=== PATIENT | male | born 1945 | race Caucasian/White ===

== ENCOUNTER 2016-12-08 23:14 | Observation (INO) | payer MEDICARE, OTHER ==
[2016-12-08] MEDS ORDERED: IPRATROPIUM/ALBUTEROL 0.5/3 MG 3 ML AMPUL.NEB INHALATION ONE (23:43)
[2016-12-08 23:49] LABS: BASOPHIL# 0.2 X 10^3uL (0.0-0.1); BASOPHILS 2.6 % (0.0-2.0); EOSINOPHILS 2.6 % (0.0-6.0); EOSINOPHILS# 0.2 X 10^3uL (0.0-0.4); HEMATOCRIT 44.2 % (42.0-54.0); HEMOGLOBIN 15.1 g/dL (14.0-18.0); LYMPHOCYTES 22.6 % (20.0-40.0); LYMPHOCYTES# 2.1 X 10^3uL (0.8-3.8); MEAN CELL VOLUME 101.2 fL (80.0-100.0); MEAN CORPUS. HGB CONCENTRATION 34.1 g/dL (32.0-36.0); MEAN CORPUSCULAR HEMOGLOBIN 34.6 pg (29.0-35.0); MONOCYTES 8.6 % (2.0-10.0); MONOCYTES# 0.8 X 10^3uL (0.2-1.0); NEUTROPHILS 63.6 % (54.0-75.0); PLATELET COUNT 294 X 10^3uL (130-440); RED BLOOD COUNT 4.36 X 10^6uL (4.20-6.10); WHITE BLOOD COUNT 9.3 X 10^3uL (3.9-10.7)
[2016-12-09 00:01] LABS: ALKALINE PHOSPHATASE 90 U/L (38-126); AST 22 U/L (17-59); BILIRUBIN, TOTAL 0.8 mg/dL (0.2-1.3); BLOOD UREA NITROGEN 19 mg/dL (9-20); CALCIUM 8.9 mg/dL (8.4-10.2); CHLORIDE 104 mmol/L (98-107); CREATININE 0.9 mg/dL (0.7-1.3); EST GLOMERULAR FILTRATION RATE > 60 mL/min; GLUCOSE 125 mg/dL (70-100); LIPASE 125 U/L (23-300); POTASSIUM 4.1 mmol/L (3.5-5.1); SODIUM 142 mmol/L (137-145)
[2016-12-09 00:03] LABS: INR 3.1
[2016-12-09 00:10] LABS: ETHYL ALCOHOL < 10 mg/dL (<10)
--- NOTE | 2016-12-09 00:21 | RADIOLOGY REPORT ---
HISTORY: Shortness of breath COMPARISON: None. FINDINGS: 2 views of the chest obtained. Cardiac silhouette is mildly enlarged. Mediastinal contours are within normal limits. There is pulmonary vascular congestion. There is no lobar consolidation, pleural effu adilson, or pneumothorax. Osseous structures are unremarkable for age. IMPRESSION: Mildly enlarged cardiac silhouette with pulmonary vascular congestion. Final Electronic Signature: This report was electronically signed by Demetrius Grider MD on 12/09/2016 1 2:18 AM. [email or web address] /
[2016-12-09] MEDS ORDERED: HOME MEDICATION LIST NEEDED 1 EA EACH MISC ONE (00:24)
[2016-12-09] MEDS ORDERED: MAG-AL PLUS XS SUSP 30 ML UDC PO PRN (00:24)
[2016-12-09] MEDS ORDERED: ACETAMINOPHEN 325 MG TABLET PO PRN (00:24)
--- NOTE | 2016-12-09 01:14 | ER NURSING DOCUMENTATION ---
Nurse's Notes [facility] Name:César Sparks Age:71 yrs Sex:Male :1945 Arrival Date:12/08/2016 Time:23:14 Bed4 Private MD: Diagnosis:Hypoxia;COPD Exacerbation Presentation: 12/08 23:23 Notified ED Physician of Dr. Kuhn notified. lb 23:23 Acuity: ERNIE 3 lb 23:44 Presenting complaint: Patient states: fell 2 days ago, c/o ruq/rib pain worse with deep lb breath. alos feels short of breath. hx copd, came up to altitude this am. Transition of care: patient was not received from another setting of care. 23:44 Method Of Arrival: Walk In lb 23:52 Mechanism of Injury: Fall. lb Triage Assessment: 23:49 General: Appears uncomfortable, Behavior is appropriate for age, pleasant. Pain: lb Complains of pain in diaphragm Pain does not radiate. Pain currently is 9 out of 10 on a pain scale. Quality of pain is described as sharp, Pain began 2-3 days ago. Respiratory: Airway is patent Trachea midline Respiratory effort is labored, Respiratory pattern is regular, Breath sounds with wheezes bilaterally. Reports shortness of breath Onset: The symptoms/episode began/occurred this morning, the patient has moderate shortness of breath. Historical: - Allergies: No known drug Allergies; - Home Meds: 1. Coumadin Oral 2. atorvastatin oral 3. gabapentin oral 4. Lisinopril Oral 5. Advair Diskus Inhl 6. carvedilol oral 7. Aspirin Oral 8. Albuterol Inhl 9. Baclofen Oral 10. spiriva - PMHx: CHF; COPD; CVA; Hypertension; ATRIAL FIB; ANEURYSM; ARTHRITIS; - PSHx: Knee surgery; HERNIA REPAIR; splenectomy; - Tetanus: < 10 years. - Ebola Screening: : Patient denies exposure to infectious person. Patient denies travel to an Ebola-affected area in the 21 days before illness onset. . - Immunization history: Pneumococcal vaccine status is unknown, Flu Vaccine < 1 year Flu Vaccine < 1 year. - Social history: Smoking status: Patient states former smoker of tobacco. Patient uses alcohol but reports only rare drinking. Screenin:51 Infectious Disease Risk None. Abuse screen: Denies threats or abuse. Denies injuries lb from another. Nutritional screening: No deficits noted. Assessment: 23:51 See Triage Assessment done by same RN. lb 12/09 00:30 Cardiovascular: Rhythm is atrial fibrillation With PVC's. lb Vital Signs: 12/08 23:51 BP 142 / 93; Pulse 92; Resp 22; Pulse Ox 87% on R/A; Pain 9/10; lb 12/09 00:06 BP 132 / 99; Pulse 101; Resp 20; Pulse Ox 92% on 2 lpm NC; lb Vitals: 12/08 23:53 Peak flow readin liters/min. lb ED Course: 23:16 Patient arrived in ED. ma1 23:23 Sobeida Parks is Primary Nurse. lb 23:26 Triage completed. 23:39 Harsha Kuhn MD is Attending Physician. de 23:51 Valuables Remains with patient Patient has correct armband on for positive lb identification. Placed in gown. Bed in low position. Call light in reach. Side rails up X 1. 23:52 Oxygen Oxygen administration via nasal cannula @ 2L/min. lb 23:57 CXR 2V 53742 In Process Unspecified. EDMS 23:59 Patient moved to radiology. dnn 23:59 Patient moved back from radiology. dnn 23:59 CXR 2V [id number] Sent. dnn 12/09 00:05 CXR 2V [id number] In Process Unspecified. EDMS 00:46 Sunday Baez MD is Admitting Physician. de 00:53 EKG attached lb 01:12 Inserted peripheral IV: 20 gauge in left antecubital area and blood collected. lb Administered Medications: 12/08 23:43 Drug: DuoNeb (Albuterol 2.5 mg, Atrovent 0.5 mg); 3 ml; Route: Nebulizer; lb 12/09 00:01 Follow up: Response: Wheezing unchanged lb Outcome: 00:49 Decision to Admit by Provider. sc 01:12 Admitted to Med/surg accompanied by nurse, via stretcher, with oxygen. lb 01:12 Condition: stable 01:12 Discharge Assessment: Patient awake, alert and oriented x 3. No cognitive and/or functional deficits noted. Patient verbalized understanding of disposition instructions. 01:12 Instructed on need to admit 01:13 Patient left the ED. lb Signatures: Dispatcher [employer] EDDC ChewHarsha MD MD sc Norman, David dnn Bollock, Lynda lb Addison, Carol queen
--- NOTE | 2016-12-09 01:14 | ER PHYSICIAN DOCUMENTATION ---
Physician Documentation [place] [facility] Name:César Sparks Age:71 yrs Sex:Male :1945 Arrival Date:12/08/2016 Time:23:14 Bed4 Private MD: Harsha Dove Disposition: 12/09 00:46 Critical Care: not applicable. sc Disposition: 12/09/16 00:49 Admit ordered for Sunday Baez. Preliminary diagnosis are Hypoxia, COPD Exacerbation. - Bed requested for Medical/Surgical. - Condition is Fair. - Problem is new. - Symptoms have improved. 23 HR OBS Yes HPI: 12/08 23:46 This 71 yrs old Male presents to ER via Walk In with complaints of Breathing sc Difficulty, Fall Injury. 23:46 The patient has shortness of breath at rest. Onset: The symptom(s)/episode sc began/occurred 2 day(s) ago. Duration: The symptoms are continuous, and are steadily getting worse. The patient's shortness of breath is aggravated by coughing, can't breathe or cough effectively secondary to pain. Associated signs and symptoms: Pertinent positives: non-productive cough, wheezing. Historical: - Allergies: No known drug Allergies; - Home Meds: 1. Coumadin Oral 2. atorvastatin oral 3. gabapentin oral 4. Lisinopril Oral 5. Advair Diskus Inhl 6. carvedilol oral 7. Aspirin Oral 8. Albuterol Inhl 9. Baclofen Oral 10. spiriva - PMHx: CHF; COPD; CVA; Hypertension; ATRIAL FIB; ANEURYSM; ARTHRITIS; - PSHx: Knee surgery; HERNIA REPAIR; splenectomy; - Tetanus: < 10 years. - Ebola Screening: : Patient denies exposure to infectious person. Patient denies travel to an Ebola-affected area in the 21 days before illness onset. . - Immunization history: Pneumococcal vaccine status is unknown, Flu Vaccine < 1 year Flu Vaccine < 1 year. - Social history: Smoking status: Patient states former smoker of tobacco. Patient uses alcohol but reports only rare drinking. ROS: 23:48 Eyes: Negative for injury, pain, redness, and discharge. sc ENT: Negative for injury, pain, and discharge. Neck: Negative for injury, pain, and swelling. Abdomen/GI: Negative for abdominal pain, nausea, vomiting, diarrhea, and constipation. Back: Negative for injury and pain. MS/Extremity: Negative for injury and deformity. Skin: Negative for injury, rash, and discoloration. 23:48 Neuro: Negative for headache, weakness, numbness, tingling, and seizure. sc 23:48 Constitutional: Positive for fatigue, Negative for fever. 23:48 Cardiovascular: Positive for edema. 23:48 Respiratory: Positive for cough, shortness of breath, wheezing. Exam: Constitutional: This is a well developed, well nourished patient who is awake, alert, and in no acute distress. Head/Face: Normocephalic, atraumatic. Eyes: Pupils equal round and reactive to light, extra-ocular motions intact. Lids and lashes normal. Conjunctiva and sclera are non-icteric and not injected. Cornea within normal limits. Periorbital areas with no swelling, redness, or edema. ENT: Nares patent. No nasal discharge, no septal abnormalities noted. Tympanic membranes are normal and external auditory canals are clear. Oropharynx with no redness, swelling, or masses, exudates, or evidence of obstruction, uvula midline. Mucous membranes moist. Neck: Trachea midline, no thyromegaly or masses palpated, and no cervical lymphadenopathy. Supple, full range of motion without nuchal rigidity, or vertebral point tenderness. No meningismus. Abdomen/GI: Soft, non-tender, with normal bowel sounds. No distension or tympany. No guarding or rebound. No evidence of tenderness throughout. Back: No spinal tenderness. No costovertebral tenderness. Full range of motion. Skin: Warm, dry with normal turgor. Normal color with no rashes, no lesions, and no evidence of cellulitis. 23:49 Neuro: Awake and alert, GCS 15, oriented to person, place, time, and situation. sc Cranial nerves II-XII grossly intact. Motor strength 5/5 in all extremities. Sensory grossly intact. Cerebellar exam normal. Normal gait. 23:49 Chest/axilla: Inspection: normal, Palpation: tenderness, that is moderate, that totally reproduces the patient's complaints. 23:49 Cardiovascular: Rate: normal, Rhythm: regular. 23:49 Respiratory: moderate respiratory distress is noted, Respirations: shallow respirations, that is mild, tachypnea, Breath sounds: wheezing, that is moderate, is scattered. Vital Signs: 23:51 BP 142 / 93; Pulse 92; Resp 22; Pulse Ox 87% on R/A; Pain 9/10; lb 12/09 00:06 BP 132 / 99; Pulse 101; Resp 20; Pulse Ox 92% on 2 lpm NC; lb MDM: 12/08 23:39 Patient medically screened. al 23:50 Differential diagnosis: CHF exacerbation, Chronic Obstructive Pulmonary Disease rib sc injury. Data reviewed: vital signs, nurses notes, lab test result(s), radiologic studies, and as a result, I will continue to observe the patient. Data interpreted: Pulse oximetry: on room air is 87 %. 12/09 00:39 Antibiotic administration: Not indicated. Counseling: I had a detailed discussion with al the patient and/or guardian regarding: the historical points, exam findings, and any diagnostic results supporting the discharge/admit diagnosis, lab results, radiology results, the need for further work-up and treatment in the hospital. Physician consultation: Sunday Baez MD was called at 00:46, was contacted at 00:46, regarding patient's condition. 00:53 EKG attached 12/08 23:50 Order name: CBC AUTO DIF, MDIF/RMOR IF IND EDDC 12/09 00:06 Interpretation: Normal. al 12/09 00:06 Order name: PROTIME/INR [facility] 12/09 00:07 Interpretation: Abnormal: INR 3.1; anticoagulated. al 12/09 00:10 Order name: BASIC METABOLIC PANEL [facility] 12/09 00:10 Order name: ALKALINE PHOSPHATASE [facility] 12/09 00:10 Order name: AST [facility] 12/09 00:10 Order name: BILIRUBIN, TOTAL EDDC 12/09 00:10 Order name: LIPASE [facility] 12/09 00:10 Order name: BNP,NT-PRO EDDC 12/09 00:10 Order name: ETHYL ALCOHOL [facility] 12/08 23:57 Order name: CXR 2V [id number]; Complete Time: 00:07 [facility] 12/09 00:07 Interpretation: Normal Except. al 12/09 00:22 Order name: CXR 2V [id number] EDMS Dispensed Medications: 12/08 23:43 Drug: DuoNeb (Albuterol 2.5 mg, Atrovent 0.5 mg); 3 ml; Route: Nebulizer; 12/09 00:01 Follow up: Response: Wheezing unchanged lb Signatures: Harsha Kuhn MD MD sc Bollock, Lynda lb
[2016-12-09] MEDS: ALBUTEROL 0.083% 2.5 MG/3 ML VIAL.NEB INHALATION SCH ×3 (01:56→09:27)
[2016-12-09] MEDS: METHYLPREDNISOLONE SOD 125 MG/2 ML VIAL IV SCH ×2 (01:56→06:06)
[2016-12-09 06:42] VITALS: BP 117/83; PULSE 87; RESP 16; TEMP 97.3
[2016-12-09] MEDS ORDERED: IPRATROPIUM BROMIDE 0.5 MG/2.5 ML NEB INHALATION SCH (07:30)
[2016-12-09] MEDS ORDERED: LIDOCAINE 5% 1 PATCH PATCH TRANSDERM SCH (09:00)
[2016-12-09] MEDS ORDERED: IPRATROPIUM/ALBUTEROL 0.5/3 MG 3 ML AMPUL.NEB INHALATION SCH (10:00)
[2016-12-09] MEDS ORDERED: CARVEDILOL 3.125 MG TABLET PO SCH (10:30)
[2016-12-09] MEDS ORDERED: CITALOPRAM HYDROBROMIDE 10 MG TABLET PO SCH (10:30)
[2016-12-09] MEDS ORDERED: FUROSEMIDE 20 MG TABLET PO SCH (10:30)
[2016-12-09 10:31] VITALS: O2SAT 94
[2016-12-09] MEDS ORDERED: GABAPENTIN 300 MG CAPSULE PO SCH (11:00)
[2016-12-09] MEDS ORDERED: LISINOPRIL 5 MG TABLET PO SCH (11:00)
--- NOTE | 2016-12-09 13:42 | CONSULTATION ---
DATE OF CONSULTATION: 12/09/16 DATE OF ADMISSION: 12/09/16 CHIEF COMPLAINT: Shortness of breath and right upper pain. HISTORY OF PRESENT ILLNESS: This is a 71-year-old gentleman who lives in [place]. He and his were vacationing and 3 days ago he had a fall. He struck his right chest region. In the ensuring few days he has had increasing pain and difficulty breathing. The patient has known COPD. He was admitted through the emergency room last night and started on respiratory therapy. He notes that taking Tylenol was effective at decreasing his pain. Today he is feeling much better and is requesting discharge. REVIEW OF SYSTEMS CONSTITUTIONAL: He had felt fine on his vacation up til this fall. He has had progressively more difficulties with breathing the last few days. CARDIAC: The patient does take Coumadin for atrial fibrillation. PULMONARY: He has had worsening COPD over the last few years and regularly takes albuterol and Advair for this. GI: No new complaints. He underwent splenectomy as a child for a fall. : Some BPH symptoms but otherwise no complaints. MUSCULOSKELETAL: Some arthritic changes. NEUROLOGIC: No history of seizures or stroke. PHYSICAL EXAMINATION VITAL SIGNS: This morning his temperature is 36.3, blood pressure 117/83, pulse is 87, respiratory rate 16. He is 93% saturated and his oxygen is at a 3 liters per minute nasal cannula. GENERAL: He is a slightly obese male who appears comfortable, in no acute distress. HEART: Regular rate and rhythm. No murmurs appreciated. LUNGS: Have distant breath sounds but are clear on the right as well as the left. CHEST: Examination of the chest wall shows that there is mild tenderness but no bruising or ecchymosis of the right side where his tenderness was. ABDOMEN: Rounded. He has a well healed left upper quadrant surgical scar. Bowel sounds are present. The abdomen is soft and nontender. EXTREMITIES: Atraumatic. IMPRESSION 1. Chronic obstructive pulmonary disease exacerbation. 2. Probable rib contusions. He has no findings on chest x-ray of rib fractures but these are suspected. PLAN: He is much better with just taking Tylenol. Would recommend adding Lidoderm patch for pain relief. I feel that he can be discharged today if his respiratory status is deemed adequate. RON
--- NOTE | 2016-12-09 14:31 | HISTORY & PHYSICAL ---
DATE OF ADMISSION: 12/09/16 DATE OF DISCHARGE: 12/09/16 DIAGNOSES 1. Chronic obstructive pulmonary disease exacerbation. 2. Congestive heart failure exacerbation. 3. Hypoxia. 4. Right chest wall pain status post fall. 5. Coronary artery disease. 6. Multiple aneurysms. HISTORY OF PRESENT ILLNESS: This is a 71-year-old male visitor from [place], who had a fall 3 days ago while in [place], injuring the right chest wall and ribs. He is having difficult taking deep breaths since secondary to the pain. Yesterday he arrived in [place] at 7500 foot elevation. Since he has been here, he has been experiencing increasing shortness of breath with associated productive cough with clear phlegm, wheezing , slight coryza. Some of these symptoms are chronic and unchanged from usual. No fever, chills, sinus pressure, postnasal drainage or sore throat. No left- sided angina chest pain, nausea, diaphoresis or radiation of symptoms to his jaw or back. No pyrosis or pleurisy. ER evaluation noted him to be profoundly hypoxic. ALLERGIES: None. MEDICATIONS Coumadin 5 mg p.o. q.day. Advair 250/50 inhaler, one puff b.i.d. Baclofen 10 mg p.o. at bedtime. Celexa 20 mg p.o. q.day. Carvedilol 3.125 mg p.o. b.i.d. Furosemide 40 mg p.o. q.day. Lipitor 20 mg p.o. q.day. Gabapentin 300 mg p.o. b.i.d. Lisinopril 2.5 mg p.o. q.day. ProAir HFA inhaler 2 puffs q.i.d. p.r.n. Spiriva 18 mcg inhalation q.day p.r.n. on a rare basis. Vitamin B12 2500 mcg 2 times per week. Albuterol nebulizer q.i.d. PAST MEDICAL HISTORY 1. CAD. Cardiomyopathy with an approximate ejection fraction of 25%. 2. Cardiomyopathy with an approximate ejection fraction of 25%. 3. Congestive heart failure. 4. Hyperlipidemia. 5. Hypertension. 6. COPD. 7. History of CVA. 8. Kidney stones. 9. History of hepatitis. 10. Trigeminal neuralgia surgery. 11. Femoral popliteal bypass surgery. 12. At least 9 aneurysms including behind the knee in the subiliac area and abdominal aortic aneurysm. 13. Splenectomy. 14. Hernia repair. 15. Knee surgery. SOCIAL HISTORY: , 4 children. Retired [employer]. Quit smoking 03/2016 after a 50-pack year smoking history. Social alcohol. FAMILY HISTORY: Father with abdominal aortic aneurysm. Brother of cancer. Mother since age 64 of [place]. REVIEW OF SYSTEMS: No kidney infections, liver, diabetes, thyroid, seizures, peptic ulcer disease, , skin allergy or bleeding disorders. Nocturia times 2. PREVENTATIVE HEALTH: Gets annual flu shot. Had Pneumovax and Prevnar and Zostavax. PHYSICAL EXAMINATION VITAL SIGNS: Blood pressure 142/93, pulse 92, respirations 22, room air pulse oximetry 87%, 92% on oxygen 2 liters per minute by nasal prongs. GENERAL: Well-developed, well-nourished, overweight male, alert and oriented times 3. HEENT: EOMI. Pupils equally round. Normal conjunctivae. No coryza. Oropharynx not injected. NECK: No adenopathy, thyromegaly or bruits. Supple. CHEST: Clear. No rales, rhonchi or wheezes, but has markedly diminished breath sounds throughout. Chest wall with localized tenderness on the right lateral chest wall. On palpation no rash or shingles. COR: RRR without murmurs, gallops, rubs or clicks. No jugular venous distention. No ectopy. Heart sounds are somewhat hard to hear and somewhat distant. ABDOMEN: Soft, nontender. No hepatosplenomegaly. No masses. Bowel sounds present. LOWER EXTREMITIES: No edema, pulses present. NEUROLOGIC: Cranial nerves 2 through 12 are intact. Motor and sensory 5. CHEST X-RAY: Mild cardiomegaly with pulmonary vascular congestion. No infiltrate. EKG: Not available to me at this time. LABORATORY STUDIES: WBC 9.3, H&H 15.1/44.2, platelets 294,000. INR 3.1 with protime 37.0. Sodium 142, potassium 4.1, chloride 104, CO2 26, BUN 19, creatinine 0.9, glucose 125. Calcium 8.9, total bilirubin 0.8, AST 22, alkaline phosphatase 90, lipase 125. ProBNP 3420. Alcohol level 0. HOSPITAL COURSE: The patient was admitted with a COPD exacerbation and CHF exacerbation with associated hypoxia. Oxygen needs worsened and the patient was requiring oxygen at 3 liters per minute by nasal prongs during the night. The patient received IV Solu-Medrol and nebulizer treatments q.4h. By the following day, respiratory distress had improved and room air pulse oximetry was around 88%. The patient planned to travel down to [facility] and it felt reasonable to the patient to be discharged off of oxygen as they will be traveling down to [place] today. Overall the patients respiratory status had dramatically improved; while I did advise the patient and that they probably should just stay in the hospital for an extra 1-2 days, they strongly desired to be discharged and will follow up with their family doctor for treatment. Respiratory therapy was asked to be involved with the care of the patient. DISCHARGE INSTRUCTIONS: The patient may participate in activities as able. The patient was encouraged to travel to [facility] immediately upon leaving the hospital. The patient will be on a cardiac, low salt, low cholesterol diet. The patient should go to the emergency room en route between [facility] and [place] if he starts to develop angina chest pain, chest pressure, worsening shortness of breath or other angina heart failure symptoms or respiratory distress. The patient will have a followup appointment with his family physician next week in [place]. DISCHARGE MEDICATIONS Advair 250/50 inhaler 1 puff b.i.d. Baclofen 10 mg p.o. q.h.s. Celexa 20 mg p.o. q.day. Carvedilol 3.125 mg p.o. b.i.d. Warfarin 5 mg p.o. q.day. Furosemide 40 mg p.o. q.day. Lipitor 20 mg p.o. q.day. Gabapentin 300 mg p.o. b.i.d. Lisinopril 2.5 mg p.o. q.day. ProAir HFA inhaler 2 puffs q.4h, #1 with refill. Spiriva 18 mcg inhaler daily. Vitamin B12 2500 mg 2 times per week. Lidoderm 5% patch to be applied in the morning and taken off at night. Prednisone 20 mg p.o. taper, 3 tablets q.day for 3 days, 2 tablets q.day for 3 days, 1 tablet q.day for 3 days. Tylenol 650 mg p.o. q.6h p.r.n. pain. Albuterol nebulizer q.i.d. MTDD
[2016-12-09] MEDS ORDERED: WARFARIN SODIUM 5 MG TABLET PO SCH (16:00)
[2016-12-09] MEDS ORDERED: FLUTICASONE/SALMETEROL 250/50 14 INH DISK INHALATION SCH ×2 (21:00)
[2016-12-09] MEDS ORDERED: BACLOFEN 10 MG PO SCH ×2 (21:00)
[2016-12-10] MEDS ORDERED: ATORVASTATIN CALCIUM 10 MG TABLET PO SCH (09:00)
== END 2016-12-09 10:20 | disposition home or self-care (01) ==
LOC: ER 23:14 → IN 12-09 01:10
PROVIDERS: ADMIT Family Medicine; ATTEND Family Medicine
DX: J44.1 Chronic obstructive pulmonary disease with (acute) exacerbation (principal); R07.89 Other chest pain; G89.11 Acute pain due to trauma; Z87.891 Personal history of nicotine dependence; I42.9 Cardiomyopathy, unspecified; E78.5 Hyperlipidemia, unspecified; I25.10 Atherosclerotic heart disease of native coronary artery without angina pectoris; I11.0 Hypertensive heart disease with heart failure; I50.9 Heart failure, unspecified; Z86.73 Personal history of transient ischemic attack (TIA), and cerebral infarction without residual deficits; Z86.19 Personal history of other infectious and parasitic diseases; Z79.01 Long term (current) use of anticoagulants; Z79.899 Other long term (current) drug therapy; Z86.79 Personal history of other diseases of the circulatory system
CPT/HCPCS: 71020; 80048; 80320; 82247; 83690; 83880; 84075; 84450; 85025; 85610; 94640; 99236; 99283; 99285; G0378; J2930; J7613; J7620